=== PATIENT | male | born 1970 | race African-American/Black ===

== ENCOUNTER 2017-04-22 12:16 | Inpatient (IN) | payer OTHER ==
[2017-04-22 13:22] VITALS: BMI 39.8
--- NOTE | 2017-04-22 17:08 | HP ---
CIWA Score - CIWA Score Nausea/Vomitin-Mild Nausea/No Vomiting Muscle Tremors: 4-Moderate,w/Arms Extend Anxiety: 4-Mod. Anxious/Guarded Agitation: 4-Moderately Restless Paroxysmal Sweats: 1-Minimal Palms Moist Orientation: 2-Disoriented Date<2 days Tacttile Disturbances: 1-Very Mild Itch/Numbness Auditory Disturbances: 0-None Visual Disturbances: 0-None Headache: 1-Very Mild CIWA-Ar Total Score: 18 Admission ROS S - HPI Chief Complaint: withdrawal sx Allergies/Adverse Reactions: Allergies Allergy/AdvReac Type Severity Reaction Status Date / Time tomato Allergy Mild Swelling Verified 05/15/12 17:34 History of Present Illness: 46 years old male with long history of alcohol nicotine dependence has hypertension and depression is admitted to detox Exam Limitations: No Limitations - Ebola screening Have you traveled outside of the country in the last 21 days: No Have you had contact with anyone from an Ebola affected area: No Have you been sick,other than usual withdrawal symptoms: No Do you have a fever: No - Review of Systems Constitutional: Changes in sleep, Weight Stable EENT: reports: Blurred Vision (wears eye glasses) Respiratory: reports: No Symptoms reported Cardiac: reports: No Symptoms Reported GI: reports: Nausea, Poor Fluid Intake, Abdominal cramping : reports: No Symptoms Reported Musculoskeletal: reports: Back Pain (chronic) Integumentary: reports: No Symptoms Reported Neuro: reports: Tremors Endocrine: reports: No Symptoms Reported Hematology: reports: No Symptoms Reported Psychiatric: reports: Judgement Intact, Depressed Other Systems: Reviewed and Negative Patient History - Patient Medical History Hx Anemia: No Hx Asthma: No Hx Chronic Obstructive Pulmonary Disease (COPD): No Hx Cancer: No Hx Cardiac Disorders: No Hx Congestive Heart Failure: No Hx Hypertension: Yes (LISINOPRIL 10MG,HCTZ 25MG) Hx Hypercholesterolemia: No Hx Pacemaker: No Hx Seizures: No Hx Dementia: No Hx Diabetes: No Hx Gastrointestinal Disorders: No Hx Liver Disease: No Hx Genitourinary Disorders: No Hx Sexually Transmitted Disorders: No Hx Renal Disease (ESRD): No Hx Thyroid Disease: No Hx Human Immunodeficiency Virus (HIV): No Hx Hepatitis C: No Hx Depression: Yes Hx Suicide Attempt: No Hx Bipolar Disorder: No Hx Schizophrenia: No (JIMMIE ROBLERO) - Patient Surgical History Past Surgical History: No - PPD History Previous Implant?: Yes Documented Results: Negative w/proof Implanted On Prior [facility] Admission?: Yes Date: 05/17/12 PPD to be Administered?: Yes - Smoking Cessation Smoking history: Current every day smoker Have you smoked in the past 12 months: Yes Aproximately how many cigarettes per day: 3 Cigars Per Day: 0 Hx Chewing Tobacco Use: No Initiated information on smoking cessation: Yes 'Breaking Loose' booklet given: 04/22/17 - Substance & Tx. History Hx Alcohol Use: Yes Hx Substance Use: Yes Substance Use Type: Alcohol, Cocaine Hx Substance Use Treatment: Yes (01/2017 [facility]) - Substances Abused Alcohol Route: Oral Frequency: Daily Amount used: [id number] vodka Age of first use: 11 Date of Last Use: 04/22/17 Cocaine Route: Smoking Frequency: 3-6 times per week Amount used: 10$ Age of first use: 11 Date of Last Use: 04/21/17 Family Disease History - Family Disease History Family Disease History: Heart Disease: Mother (/hiv), Other: Father ( /no contact), Mother, Brother (no contact), Sister (no sister) Admission Physical Exam BHS - Vital Signs Vital Signs: Vital Signs - 24 hr 04/22/17 13:11 Temperature 96.6 F L Pulse Rate 99 H Respiratory 20 Rate Blood Pressure 149/104 - Physical General Appearance: Yes: Appropriately Dressed, Mild Distress, Alcohol on Breath , Obese, Tremorous, Irritable, Sweating, Anxious HEENTM: Yes: Hearing grossly Normal, Normal ENT Inspection, Normocephalic, Normal Voice Respiratory: Yes: Chest Non-Tender, Lungs Clear, Normal Breath Sounds, No Respiratory Distress, No Accessory Muscle Use Neck: Yes: Supple, Trachea in good position Breast: Yes: Breasts Symetrical Cardiology: Yes: Regular Rhythm, S1, S2, Tachycardia Abdominal: Yes: Non Tender, Soft, Increased Bowel Sounds Genitourinary: Yes: Within Normal Limits Back: Yes: Normal Inspection Musculoskeletal: Yes: full range of Motion, Gait Steady, Back pain Extremities: Yes: Normal Inspection, Normal Range of Motion, Non-Tender, Tremors Neurological: Yes: Alert, Motor Strength 5/5, Normal Response, Depressed Affect Integumentary: Yes: Warm Lymphatic: Yes: Within Normal Limits - Diagnostic (1) Alcohol dependence with uncomplicated withdrawal Current Visit: Yes Status: Acute (2) Hypertension Current Visit: Yes Status: Chronic Qualifiers: Hypertension type: essential hypertension Qualified Code(s): I10 - Essential (primary) hypertension (3) Nicotine dependence Current Visit: Yes Status: Acute Qualifiers: Nicotine product type: cigarettes Substance use status: in withdrawal Qualified Code(s): F17.213 - Nicotine dependence, cigarettes, with withdrawal (4) Depression (emotion) Current Visit: Yes Status: Suspected Qualifiers: Depression Type: dysthymia Qualified Code(s): F34.1 - Dysthymic disorder Cleared for Admission S - Detox or Rehab [facility] Level of Care: Medically Managed Detox Regimen/Protocol: Librium S Breath Alcohol Content Breath Alcohol Content: 0.035 Urine Drug Screen - Results Drug Screen Negative: No Urine Drug Screen Results: IDA-Cocaine
[2017-04-22] MEDS ORDERED: MAGNESIUM HYDROX 2400MG/30ML ORAL SUSPENSION 30 ML CUP PO PRN (17:12)
[2017-04-22] MEDS ORDERED: MAG HYDROX/AL HYDROX/SIMETH 30 ML UNIT-DOSE CUP PO PRN (17:12)
[2017-04-22] MEDS ORDERED: MENTHOL/PHENOL 1 EACH UD MM PRN (17:12)
[2017-04-22] MEDS ORDERED: guaiFENesin/D-METHORPHAN HB 10 ML UNIT-DOSE CUPS PO PRN (17:12)
[2017-04-22] MEDS ORDERED: MAGNESIUM CITRATE 300 ML BOTTLE PO PRN (17:12)
[2017-04-22] MEDS ORDERED: chlordiazePOXIDE HCL 25 MG CAPSULE PO PRN (17:12)
[2017-04-22] MEDS ORDERED: NICOTINE POLACRILEX 2 MG GUM BC PRN (17:12)
[2017-04-22] MEDS ORDERED: P-EPHED 60MG/TRIPROLIDI 2.5MG TABLET PO PRN (17:12)
[2017-04-22] MEDS ORDERED: LOPERAMIDE HCL 2 MG CAPSULE PO PRN (17:12)
[2017-04-22] MEDS ORDERED: ACETAMINOPHEN 325 MG TABLET (FP) PO PRN (17:12)
[2017-04-22] MEDS: LISINOPRIL 20 MG TABLET (FP) PO SCH (20:00)
[2017-04-22] MEDS: NIFEdipine E.R 60 MG TABLET (UD) PO SCH (20:00)
[2017-04-22] MEDS: chlordiazePOXIDE HCL 25 MG CAPSULE PO SCH (22:20)
[2017-04-22] MEDS: THIAMINE HCL 100 MG TABLET (FP) PO SCH (22:20)
[2017-04-22] MEDS: hydrOXYzine PAMOATE 50 MG CAPSULE (FP) PO PRN (22:22)
[2017-04-22 23:31] LABS: URINE APPEARANCE CLEAR; URINE BILIRUBIN NEGATIVE (NEGATIVE); URINE BLOOD NEGATIVE (NEGATIVE); URINE COLOR YELLOW; URINE GLUCOSE (UA) NEGATIVE (NEGATIVE); URINE KETONE NEGATIVE (NEGATIVE); URINE LEUK ESTERASE NEGATIVE (NEGATIVE); URINE NITRITE NEGATIVE (NEGATIVE)
[2017-04-22 23:35] LABS: URINE PROTEIN 2+ (NEGATIVE)
[2017-04-23] LABS: EPI CELLS RARE /HPF (FEW); URINE MUCUS RARE
[2017-04-23] MEDS: chlordiazePOXIDE HCL 25 MG CAPSULE PO SCH ×4 (05:38→22:04)
[2017-04-23] MEDS: NIFEdipine E.R 60 MG TABLET (UD) PO SCH (10:31)
[2017-04-23] MEDS: LISINOPRIL 20 MG TABLET (FP) PO SCH (10:31)
[2017-04-23] MEDS: PRENATAL VITAMINS W/ FOLIC ACID TABLET (FP) PO SCH (10:31)
[2017-04-23] MEDS: NICOTINE 14 MG/24 HOURS TOPICAL PATCH TD SCH (10:32)
[2017-04-23] MEDS: IBUPROFEN 400 MG TABLET (FP) PO PRN (10:33)
[2017-04-23 10:42] LABS: HEMATOCRIT 44.2 % (35.4-49); HEMOGLOBIN 14.4 GM/dL (11.7-16.9); MCH 30.6 pg (25.7-33.7); MCHC 32.5 g/dl (32.0-35.9); MEAN CELL VOLUME 94.1 fl (80-96); MEAN PLT VOLUME 10.9 fl (7.5-11.1); PLATELET COUNT 258 K/MM3 (134-434); RBC 4.69 M/mm3 (4.00-5.60); RDW 15.9 % (11.9-15.9)
[2017-04-23 10:52] LABS: CHLORIDE 107 mmol/L (98-107); POTASSIUM 3.9 mmol/L (3.5-5.1); SODIUM 142 mmol/L (136-145)
[2017-04-23 11:02] LABS: ALBUMIN 3.7 g/dl (3.4-5.0); ALK PHOS 106 U/L (45-117); ANION GAP 11 (8-16); BILIRUBIN,TOTAL 0.4 mg/dL (0.2-1.0); BLOOD UREA NITROGEN 11 mg/dL (7-18); CO2 24 mmol/L (21-32); CREATININE 1.2 mg/dL (0.7-1.3); GLUCOSE,RANDOM 120 mg/dL (74-106); SGOT/AST 21 U/L (15-37); SGPT/ALT 24 U/L (12-78); TOT PROT 7.5 g/dl (6.4-8.2)
[2017-04-23] MEDS ORDERED: PNEUMOCOCCAL 23 VACCINE 0.5 ML VIAL IM ONE (12:00)
[2017-04-23] MEDS ORDERED: FLU VACCINE QUAD 60 MCG/0.5 ML (MDV 17-18) IM ONE (12:00)
[2017-04-23] MEDS ORDERED: PNEUMOC 13-VAL CONJ-DIP CRM/PF 0.5 ML DISP.SYRIN IM ONE (12:00)
--- NOTE | 2017-04-23 12:09 | CONSULT ---
[facility] Psychiatric Consult - Data Date of interview: 04/23/17 Admission source: [facility] Identifying data: Pt. is a 46 year old male, single, without kids, on SSI and currently homeless.This is patient's first admission to [facility]. Pt. admitted to detox for alcohol and cocaine dependence. Substance Abuse History: Following information confirmed with Mr. Figueroa: - Smoking Cessation. Smoking history: Current every day smoker. Have you smoked in the past 12 months: Yes. Aproximately how many cigarettes per day: 3. Cigars Per Day: 0. Hx Chewing Tobacco Use: No. Initiated information on smoking cessation: Yes. 'Breaking Loose' booklet given: 04/22/17. - Substance & Tx. History. Hx Alcohol Use: Yes. Hx Substance Use: Yes. Substance Use Type : Alcohol, Cocaine. Hx Substance Use Treatment: Yes (01/2017 [facility]). - Substances Abused. Alcohol. Route: Oral. Frequency: Daily. Amount used: [id number]+50oz vodka. Age of first use: 11. Date of Last Use: 04/22/17. Cocaine. Route: Smoking. Frequency: 3-6 times per week. Amount used: 10$. Age of first use: 11. Date of Last Use: 04/21/17 Medical History: Hypertension. Psychiatric History: Pt. reports two psychiatric hospitalizations, most recently one month ago at [facility] for medication management. Patient's first encounter with a psychiatrist was in 1994 at [facility]. Stated he was diagnosed with Schizoaffective bipolar type. Pt. currently denies OPC. Reports getting his prescriptions when admitting himself to detox, rehab, and attending other mental health programs such as [facility] and [facility]. States he was taking depakote 500mg ER BID, latuda 40mg and trazodone 200mg. Reports no medications in one month and would like to resume medications while in detox. Pt. denies h/o suicide attempt. Physical/Sexual Abuse/Trauma History: Denies. Mental Status Exam - Mental Status Exam Alert and Oriented to: Time, Place, Person Cognitive Function: Good Patient Appearance: Well Groomed Mood: Hopeful, Happy Affect: Appropriate Patient Behavior: Cooperative Speech Pattern: Appropriate Voice Loudness: Normal Thought Process: Goal Oriented Thought Disorder: Not Present Hallucinations: Denies Suicidal Ideation: Denies Homicidal Ideation: Denies Insight/Judgement: Poor Sleep: Fair Appetite: Good Muscle strength/Tone: Normal Gait/Station: Normal Psychiatric Findings - Problem List ([place] 1, 2,3) (1) Cocaine dependence Current Visit: Yes Status: Acute (2) Alcohol dependence with uncomplicated withdrawal Current Visit: Yes Status: Acute (3) Nicotine dependence Current Visit: Yes Status: Chronic Qualifiers: Nicotine product type: cigarettes Substance use status: in withdrawal Qualified Code(s): F17.213 - Nicotine dependence, cigarettes, with withdrawal (4) Alcohol dependence Current Visit: Yes Status: Active (5) Schizoaffective disorder, bipolar type Current Visit: Yes Status: Chronic Comment: Self reports. - Initial Treatment Plan Initial Treatment Plan: Psychoeducation provided. Detoxification in progress. Depakote level ordered. Patient to restart Depakote 500mg ER BID + Latuda 40mg PO daily+ trazodone 100mg ordered. Benefits and side effects discussed. Verbal consent given. Will continue to monitor.
--- NOTE | 2017-04-23 12:36 | EKG ---
Test Reason : Blood Pressure : / mmHG Vent. Rate : 086 BPM Atrial Rate : 086 BPM P-R Int : 164 ms QRS Dur : 090 ms QT Int : 356 ms P-R-T Axes : 044 059 048 degrees QTc Int : 426 ms SINUS RHYTHM WITH OCCASIONAL PREMATURE VENTRICULAR COMPLEXES OTHERWISE NORMAL ECG NO PREVIOUS ECGS AVAILABLE Confirmed by CARY SCHWARZ, JACQUI ([id number]) on 04/23/2017 12:35:46 PM Referred By: Confirmed By:JACQUI TOWNSEND MD
--- NOTE | 2017-04-23 12:45 | PN ---
[facility] CIWA - CIWA Score Nausea/Vomitin-No Nausea/No Vomiting Muscle Tremors: 2 Anxiety: 4-Mod. Anxious/Guarded Agitation: 3 Paroxysmal Sweats: 3 Orientation: 0-Oriented Tacttile Disturbances: 2-Mild Itch/Numbness/Burn Auditory Disturbances: 0-None Visual Disturbances: 0-None Headache: 3-Moderate CIWA-Ar Total Score: 17 BHS Progress Note (SOAP) Subjective: Anxious, Diarrhea, H/A, Sweating. Objective: PT. A & O X 3, OBSERVED AMBULATING ON UNIT. NO ACUTE DISTRESS. 04/23/17 12:42 Vital Signs Temperature 98.8 F 04/23/17 09:18 Pulse Rate 94 H 04/23/17 09:18 Respiratory Rate 20 04/23/17 09:18 Blood Pressure 130/91 04/23/17 09:18 O2 Sat by Pulse Oximetry (%) Laboratory Tests 04/22/17 04/23/17 04/23/17 21:16 06:00 06:00 WBC 8.0 D RBC 4.69 Hgb 14.4 Hct 44.2 MCV 94.1 MCH 30.6 MCHC 32.5 RDW 15.9 Plt Count 258 MPV 10.9 Sodium 142 Potassium 3.9 Chloride 107 Carbon Dioxide 24 Anion Gap 11 BUN 11 D Creatinine 1.2 D Creat Clearance w eGFR > 60 Random Glucose 120 H D Calcium 9.0 Total Bilirubin 0.4 D AST 21 ALT 24 Alkaline Phosphatase 106 D Total Protein 7.5 Albumin 3.7 Urine Color Yellow Urine Appearance Clear Urine pH 6.0 Ur Specific [place] 1.016 Urine Protein 2+ H Urine Glucose (UA) Negative Urine Ketones Negative Urine Blood Negative Urine Nitrite Negative Urine Bilirubin Negative Urine Urobilinogen 2.0 Ur Leukocyte Esterase Negative Urine WBC (Auto) <1 Urine RBC (Auto) <1 Ur Epithelial Cells Rare Urine Mucus Rare LABS NOTED. HIV AB, HCV AB, AND RPR RESULTS PENDING. 04/23/17 12:44 Assessment: 04/23/17 12:42 WITHDRAWAL SYMPTOMS. Plan: CONTINUE DETOX. INCREASE DAILY PO FLUID INTAKE.
[2017-04-23] MEDS: traZODone HCL 100 MG TABLET (FP) PO SCH (22:03)
[2017-04-23] MEDS: hydrOXYzine PAMOATE 50 MG CAPSULE (FP) PO PRN (22:04)
[2017-04-23] MEDS: DIVALPROEX NA *ER* EXTEND REL 500 MG TABLET.SA (FP) PO SCH (22:04)
[2017-04-23] MEDS: THIAMINE HCL 100 MG TABLET (FP) PO SCH (22:04)
[2017-04-24] MEDS: chlordiazePOXIDE HCL 25 MG CAPSULE PO SCH ×3 (05:18→17:17)
[2017-04-24] MEDS: LURASIDONE HCL 40 MG TABLET PO SCH (10:17)
[2017-04-24] MEDS: NICOTINE 14 MG/24 HOURS TOPICAL PATCH TD SCH (10:17)
[2017-04-24] MEDS: LISINOPRIL 20 MG TABLET (FP) PO SCH (10:17)
[2017-04-24] MEDS: NIFEdipine E.R 60 MG TABLET (UD) PO SCH (10:17)
[2017-04-24] MEDS: PRENATAL VITAMINS W/ FOLIC ACID TABLET (FP) PO SCH (10:17)
[2017-04-24] MEDS: DIVALPROEX NA *ER* EXTEND REL 500 MG TABLET.SA (FP) PO SCH ×2 (10:17→22:16)
--- NOTE | 2017-04-24 12:59 | PN ---
[facility] CIWA - CIWA Score Nausea/Vomitin-No Nausea/No Vomiting Muscle Tremors: 2 Anxiety: 4-Mod. Anxious/Guarded Agitation: 2 Paroxysmal Sweats: 3 Orientation: 0-Oriented Tacttile Disturbances: 0-None Auditory Disturbances: 1-Very Mild Visual Disturbances: 3-Moderate Sensitivity Headache: 0-None Present CIWA-Ar Total Score: 15 S Progress Note (SOAP) Subjective: Fatigue, Sweating, Tremors. Objective: PT. A & O X 3, OBSERVED AMBULATING ON UNIT. NO ACUTE DISTRESS. 04/24/17 12:59 Vital Signs Temperature 96.5 F L 04/24/17 09:55 Pulse Rate 111 H 04/24/17 09:55 Respiratory Rate 18 04/24/17 09:55 Blood Pressure 123/80 04/24/17 09:55 O2 Sat by Pulse Oximetry (%) Laboratory Tests 04/22/17 04/22/17 04/23/17 06:00 21:16 06:00 WBC 8.0 D RBC 4.69 Hgb 14.4 Hct 44.2 MCV 94.1 MCH 30.6 MCHC 32.5 RDW 15.9 Plt Count 258 MPV 10.9 Sodium Potassium Chloride Carbon Dioxide Anion Gap BUN Creatinine Creat Clearance w eGFR Random Glucose Calcium Total Bilirubin AST ALT Alkaline Phosphatase Total Protein Albumin Urine Color Yellow Urine Appearance Clear Urine pH 6.0 Ur Specific [place] 1.016 Urine Protein 2+ H Urine Glucose (UA) Negative Urine Ketones Negative Urine Blood Negative Urine Nitrite Negative Urine Bilirubin Negative Urine Urobilinogen 2.0 Ur Leukocyte Esterase Negative Urine WBC (Auto) <1 Urine RBC (Auto) <1 Ur Epithelial Cells Rare Urine Mucus Rare Valproic Acid RPR Titer Hepatitis C Antibody <0.1 HIV 1&2 Antibody Screen HIV P24 Antigen 04/23/17 04/23/17 04/23/17 06:00 06:00 08:00 WBC RBC Hgb Hct MCV MCH MCHC RDW Plt Count MPV Sodium 142 Potassium 3.9 Chloride 107 Carbon Dioxide 24 Anion Gap 11 BUN 11 D Creatinine 1.2 D Creat Clearance w eGFR > 60 Random Glucose 120 H D Calcium 9.0 Total Bilirubin 0.4 D AST 21 ALT 24 Alkaline Phosphatase 106 D Total Protein 7.5 Albumin 3.7 Urine Color Urine Appearance Urine pH Ur Specific [place] Urine Protein Urine Glucose (UA) Urine Ketones Urine Blood Urine Nitrite Urine Bilirubin Urine Urobilinogen Ur Leukocyte Esterase Urine WBC (Auto) Urine RBC (Auto) Ur Epithelial Cells Urine Mucus Valproic Acid RPR Titer Nonreactive Hepatitis C Antibody HIV 1&2 Antibody Screen Negative HIV P24 Antigen Negative 04/24/17 07:00 WBC RBC Hgb Hct MCV MCH MCHC RDW Plt Count MPV Sodium Potassium Chloride Carbon Dioxide Anion Gap BUN Creatinine Creat Clearance w eGFR Random Glucose Calcium Total Bilirubin AST ALT Alkaline Phosphatase Total Protein Albumin Urine Color Urine Appearance Urine pH Ur Specific [place] Urine Protein Urine Glucose (UA) Urine Ketones Urine Blood Urine Nitrite Urine Bilirubin Urine Urobilinogen Ur Leukocyte Esterase Urine WBC (Auto) Urine RBC (Auto) Ur Epithelial Cells Urine Mucus Valproic Acid 12.355 L RPR Titer Hepatitis C Antibody HIV 1&2 Antibody Screen HIV P24 Antigen LABS NOTED. Assessment: 04/24/17 12:59 WITHDRAWAL SYMPTOMS. Plan: CONTINUE DETOX. INCREASE DAILY PO FLUID INTAKE.
[2017-04-24] MEDS: THIAMINE HCL 100 MG TABLET (FP) PO SCH (22:15)
[2017-04-24] MEDS: traZODone HCL 100 MG TABLET (FP) PO SCH (22:16)
[2017-04-24] MEDS: chlordiazePOXIDE 5 MG CAPSULE PO SCH (22:16)
[2017-04-24] MEDS: IBUPROFEN 400 MG TABLET (FP) PO PRN (22:17)
[2017-04-25] MEDS: chlordiazePOXIDE 5 MG CAPSULE PO SCH ×3 (05:19→17:23)
[2017-04-25] MEDS: PRENATAL VITAMINS W/ FOLIC ACID TABLET (FP) PO SCH (10:14)
[2017-04-25] MEDS: NIFEdipine E.R 60 MG TABLET (UD) PO SCH (10:14)
[2017-04-25] MEDS: LISINOPRIL 20 MG TABLET (FP) PO SCH (10:14)
[2017-04-25] MEDS: DIVALPROEX NA *ER* EXTEND REL 500 MG TABLET.SA (FP) PO SCH ×2 (10:15→22:20)
[2017-04-25] MEDS: LURASIDONE HCL 40 MG TABLET PO SCH (10:16)
[2017-04-25] MEDS: NICOTINE 14 MG/24 HOURS TOPICAL PATCH TD SCH (10:16)
--- NOTE | 2017-04-25 16:41 | PN ---
BHS Progress Note (SOAP) Subjective: Tremors, Sweating. Objective: PT. A & O X 3, OBSERVED AMBULATING ON UNIT. NO ACUTE DISTRESS. 04/25/17 16:40 Vital Signs Temperature 99.1 F 04/25/17 13:18 Pulse Rate 101 H 04/25/17 13:18 Respiratory Rate 18 04/25/17 13:18 Blood Pressure 142/93 04/25/17 13:18 O2 Sat by Pulse Oximetry (%) Laboratory Tests 04/22/17 04/22/17 04/23/17 06:00 21:16 06:00 WBC 8.0 D RBC 4.69 Hgb 14.4 Hct 44.2 MCV 94.1 MCH 30.6 MCHC 32.5 RDW 15.9 Plt Count 258 MPV 10.9 Sodium Potassium Chloride Carbon Dioxide Anion Gap BUN Creatinine Creat Clearance w eGFR Random Glucose Calcium Total Bilirubin AST ALT Alkaline Phosphatase Total Protein Albumin Urine Color Yellow Urine Appearance Clear Urine pH 6.0 Ur Specific [place] 1.016 Urine Protein 2+ H Urine Glucose (UA) Negative Urine Ketones Negative Urine Blood Negative Urine Nitrite Negative Urine Bilirubin Negative Urine Urobilinogen 2.0 Ur Leukocyte Esterase Negative Urine WBC (Auto) <1 Urine RBC (Auto) <1 Ur Epithelial Cells Rare Urine Mucus Rare Valproic Acid RPR Titer Hepatitis C Antibody <0.1 HIV 1&2 Antibody Screen HIV P24 Antigen 04/23/17 04/23/17 04/23/17 06:00 06:00 08:00 WBC RBC Hgb Hct MCV MCH MCHC RDW Plt Count MPV Sodium 142 Potassium 3.9 Chloride 107 Carbon Dioxide 24 Anion Gap 11 BUN 11 D Creatinine 1.2 D Creat Clearance w eGFR > 60 Random Glucose 120 H D Calcium 9.0 Total Bilirubin 0.4 D AST 21 ALT 24 Alkaline Phosphatase 106 D Total Protein 7.5 Albumin 3.7 Urine Color Urine Appearance Urine pH Ur Specific [place] Urine Protein Urine Glucose (UA) Urine Ketones Urine Blood Urine Nitrite Urine Bilirubin Urine Urobilinogen Ur Leukocyte Esterase Urine WBC (Auto) Urine RBC (Auto) Ur Epithelial Cells Urine Mucus Valproic Acid RPR Titer Nonreactive Hepatitis C Antibody HIV 1&2 Antibody Screen Negative HIV P24 Antigen Negative 04/24/17 07:00 WBC RBC Hgb Hct MCV MCH MCHC RDW Plt Count MPV Sodium Potassium Chloride Carbon Dioxide Anion Gap BUN Creatinine Creat Clearance w eGFR Random Glucose Calcium Total Bilirubin AST ALT Alkaline Phosphatase Total Protein Albumin Urine Color Urine Appearance Urine pH Ur Specific [place] Urine Protein Urine Glucose (UA) Urine Ketones Urine Blood Urine Nitrite Urine Bilirubin Urine Urobilinogen Ur Leukocyte Esterase Urine WBC (Auto) Urine RBC (Auto) Ur Epithelial Cells Urine Mucus Valproic Acid 12.355 L RPR Titer Hepatitis C Antibody HIV 1&2 Antibody Screen HIV P24 Antigen LABS NOTED. Assessment: 04/25/17 16:41 WITHDRAWAL SYMPTOMS. Plan: CONTINUE DETOX. INCREASE DAILY PO FLUID INTAKE.
[2017-04-25] MEDS: hydrOXYzine PAMOATE 50 MG CAPSULE (FP) PO PRN (17:23)
[2017-04-25] MEDS: IBUPROFEN 400 MG TABLET (FP) PO PRN (17:23)
[2017-04-25] MEDS: chlordiazePOXIDE HCL 10 MG CAPSULE PO SCH (22:20)
[2017-04-25] MEDS: traZODone HCL 100 MG TABLET (FP) PO SCH (22:20)
[2017-04-25] MEDS: THIAMINE HCL 100 MG TABLET (FP) PO SCH (22:20)
[2017-04-26] MEDS: chlordiazePOXIDE HCL 10 MG CAPSULE PO SCH ×3 (05:40→17:30)
[2017-04-26] MEDS: DIVALPROEX NA *ER* EXTEND REL 500 MG TABLET.SA (FP) PO SCH ×2 (10:27→22:27)
[2017-04-26] MEDS: NIFEdipine E.R 60 MG TABLET (UD) PO SCH (10:27)
[2017-04-26] MEDS: PRENATAL VITAMINS W/ FOLIC ACID TABLET (FP) PO SCH (10:28)
[2017-04-26] MEDS: NICOTINE 14 MG/24 HOURS TOPICAL PATCH TD SCH (10:28)
[2017-04-26] MEDS: LURASIDONE HCL 40 MG TABLET PO SCH (10:29)
[2017-04-26] MEDS: LISINOPRIL 20 MG TABLET (FP) PO SCH (10:29)
--- NOTE | 2017-04-26 16:27 | PN ---
BHS Progress Note (SOAP) Subjective: Anxious, sweating Objective: 04/26/17 16:25 Last Vital Signs Temp Pulse Resp BP Pulse Ox 97.4 F L 112 H 20 139/87 04/26/17 13:27 04/26/17 13:27 04/26/17 13:27 04/26/17 13:27 Laboratory Tests 04/22/17 04/22/17 04/23/17 06:00 21:16 06:00 WBC 8.0 D RBC 4.69 Hgb 14.4 Hct 44.2 MCV 94.1 MCH 30.6 MCHC 32.5 RDW 15.9 Plt Count 258 MPV 10.9 Sodium Potassium Chloride Carbon Dioxide Anion Gap BUN Creatinine Creat Clearance w eGFR Random Glucose Calcium Total Bilirubin AST ALT Alkaline Phosphatase Total Protein Albumin Urine Color Yellow Urine Appearance Clear Urine pH 6.0 Ur Specific [place] 1.016 Urine Protein 2+ H Urine Glucose (UA) Negative Urine Ketones Negative Urine Blood Negative Urine Nitrite Negative Urine Bilirubin Negative Urine Urobilinogen 2.0 Ur Leukocyte Esterase Negative Urine WBC (Auto) <1 Urine RBC (Auto) <1 Ur Epithelial Cells Rare Urine Mucus Rare Valproic Acid RPR Titer Hepatitis C Antibody <0.1 HIV 1&2 Antibody Screen HIV P24 Antigen 04/23/17 04/23/17 04/23/17 06:00 06:00 08:00 WBC RBC Hgb Hct MCV MCH MCHC RDW Plt Count MPV Sodium 142 Potassium 3.9 Chloride 107 Carbon Dioxide 24 Anion Gap 11 BUN 11 D Creatinine 1.2 D Creat Clearance w eGFR > 60 Random Glucose 120 H D Calcium 9.0 Total Bilirubin 0.4 D AST 21 ALT 24 Alkaline Phosphatase 106 D Total Protein 7.5 Albumin 3.7 Urine Color Urine Appearance Urine pH Ur Specific [place] Urine Protein Urine Glucose (UA) Urine Ketones Urine Blood Urine Nitrite Urine Bilirubin Urine Urobilinogen Ur Leukocyte Esterase Urine WBC (Auto) Urine RBC (Auto) Ur Epithelial Cells Urine Mucus Valproic Acid RPR Titer Nonreactive Hepatitis C Antibody HIV 1&2 Antibody Screen Negative HIV P24 Antigen Negative 04/24/17 07:00 WBC RBC Hgb Hct MCV MCH MCHC RDW Plt Count MPV Sodium Potassium Chloride Carbon Dioxide Anion Gap BUN Creatinine Creat Clearance w eGFR Random Glucose Calcium Total Bilirubin AST ALT Alkaline Phosphatase Total Protein Albumin Urine Color Urine Appearance Urine pH Ur Specific [place] Urine Protein Urine Glucose (UA) Urine Ketones Urine Blood Urine Nitrite Urine Bilirubin Urine Urobilinogen Ur Leukocyte Esterase Urine WBC (Auto) Urine RBC (Auto) Ur Epithelial Cells Urine Mucus Valproic Acid 12.355 L RPR Titer Hepatitis C Antibody HIV 1&2 Antibody Screen HIV P24 Antigen Labs noted: UA 2+ protein Assessment: 04/26/17 16:26 Withdrawal symptoms Noted with proteinuria Plan: Continue detox Proteinuria: encouraged to drink lots of water, repeat UA, follow up with PCP for monitoring
[2017-04-26] MEDS: IBUPROFEN 400 MG TABLET (FP) PO PRN (20:48)
[2017-04-26] MEDS: traZODone HCL 100 MG TABLET (FP) PO SCH (22:27)
[2017-04-26] MEDS: THIAMINE HCL 100 MG TABLET (FP) PO SCH (22:27)
[2017-04-26] MEDS: hydrOXYzine PAMOATE 50 MG CAPSULE (FP) PO PRN (22:28)
[2017-04-27 09:46] VITALS: BP 130/83; PULSE 102; TEMP 96.2
--- NOTE | 2017-04-27 11:50 | DS ---
[facility] Detox Discharge Summary Admission Date: 04/22/17 Discharge Date: 04/27/17 - History Present History: Alcohol Dependence, Cocaine Dependence Additional Comments: DETOX COMPLETED. ALERT O X 3. NAD. Pertinent Past History: HTN - Physical Exam Results Vital Signs: Vital Signs Temperature 96.2 F L 04/27/17 09:45 Pulse Rate 102 H 04/27/17 09:45 Respiratory Rate 18 04/27/17 09:45 Blood Pressure 130/83 04/27/17 09:45 O2 Sat by Pulse Oximetry (%) Pertinent Admission Physical Exam Findings: WITHDRAWAL SX Laboratory Last Values WBC 8.0 K/mm3 (4.0-10.0) D 04/23/17 06:00 RBC 4.69 M/mm3 (4.00-5.60) 04/23/17 06:00 Hgb 14.4 GM/dL (11.7-16.9) 04/23/17 06:00 Hct 44.2 % (35.4-49) 04/23/17 06:00 MCV 94.1 fl (80-96) 04/23/17 06:00 MCH 30.6 pg (25.7-33.7) 04/23/17 06:00 MCHC 32.5 g/dl (32.0-35.9) 04/23/17 06:00 RDW 15.9 % (11.9-15.9) 04/23/17 06:00 Plt Count 258 K/MM3 (134-434) 04/23/17 06:00 MPV 10.9 fl (7.5-11.1) 04/23/17 06:00 Sodium 142 mmol/L (136-145) 04/23/17 06:00 Potassium 3.9 mmol/L (3.5-5.1) 04/23/17 06:00 Chloride 107 mmol/L (98-107) 04/23/17 06:00 Carbon Dioxide 24 mmol/L (21-32) 04/23/17 06:00 Anion Gap 11 (8-16) 04/23/17 06:00 BUN 11 mg/dL (7-18) D 04/23/17 06:00 Creatinine 1.2 mg/dL (0.7-1.3) D 04/23/17 06:00 Creat Clearance w eGFR > 60 (>60) 04/23/17 06:00 Random Glucose 120 mg/dL (74-106) H D 04/23/17 06:00 Calcium 9.0 mg/dL (8.5-10.1) 04/23/17 06:00 Total Bilirubin 0.4 mg/dL (0.2-1.0) D 04/23/17 06:00 AST 21 U/L (15-37) 04/23/17 06:00 ALT 24 U/L (12-78) 04/23/17 06:00 Alkaline Phosphatase 106 U/L (45-117) D 04/23/17 06:00 Total Protein 7.5 g/dl (6.4-8.2) 04/23/17 06:00 Albumin 3.7 g/dl (3.4-5.0) 04/23/17 06:00 Urine Color Yellow 04/22/17 21:16 Urine Appearance Clear 04/22/17 21:16 Urine pH 6.0 (5.0-8.0) 04/22/17 21:16 Ur Specific [place] 1.016 (1.001-1.035) 04/22/17 21:16 Urine Protein 2+ (NEGATIVE) H 04/22/17 21:16 Urine Glucose (UA) Negative (NEGATIVE) 04/22/17 21:16 Urine Ketones Negative (NEGATIVE) 04/22/17 21:16 Urine Blood Negative (NEGATIVE) 04/22/17 21:16 Urine Nitrite Negative (NEGATIVE) 04/22/17 21:16 Urine Bilirubin Negative (NEGATIVE) 04/22/17 21:16 Urine Urobilinogen 2.0 mg/dL (0.2-1.0) 04/22/17 21:16 Ur Leukocyte Esterase Negative (NEGATIVE) 04/22/17 21:16 Urine WBC (Auto) <1 /hpf (3-5) 04/22/17 21:16 Urine RBC (Auto) <1 /hpf (0-3) 04/22/17 21:16 Ur Epithelial Cells Rare /HPF (FEW) 04/22/17 21:16 Urine Mucus Rare 04/22/17 21:16 Valproic Acid 12.355 ug/ml (50-100) L 04/24/17 07:00 RPR Titer Nonreactive (NONREACTIVE) 04/23/17 06:00 Hepatitis C Antibody <0.1 s/co ratio (0.0-0.9) 04/22/17 06:00 HIV 1&2 Antibody Screen Negative 04/23/17 08:00 HIV P24 Antigen Negative 04/23/17 08:00 - Treatment Hospital Course: Detox Protocol Followed, Detoxed Safely, Responded well, Discharged Condition Good, Rehab Referral Accepted Patient has Accepted a Rehab Referral to: [facility] - Medication Discharge Medications: Ambulatory Orders Trazodone HCl [Desyrel -] 200 mg PO HS 04/22/17 Divalproex *ER* [Depakote *ER* -] 500 mg PO BID #60 tablet.sa 04/24/17 Lisinopril 20 mg PO DAILY #30 tablet 04/24/17 Lurasidone HCl [Latuda] 40 mg PO DAILY #30 tablet 04/24/17 Nifedipine ER [Procardia Xl -] 60 mg PO DAILY #30 tab.er.24 04/24/17 Trazodone HCl 100 mg PO HS #30 tablet 04/24/17 - Diagnosis (1) Alcohol dependence with uncomplicated withdrawal Status: Acute (2) Hypertension Status: Chronic Qualifiers: Hypertension type: essential hypertension Qualified Code(s): I10 - Essential (primary) hypertension (3) Nicotine dependence Status: Chronic Qualifiers: Nicotine product type: cigarettes Substance use status: in withdrawal Qualified Code(s): F17.213 - Nicotine dependence, cigarettes, with withdrawal (4) Cocaine dependence Status: Acute Qualifiers: Substance use status: uncomplicated Qualified Code(s): F14.20 - Cocaine dependence, uncomplicated - AMA Did Patient Leave Against Medical Advice: No
== END 2017-04-27 09:19 | disposition home or self-care (01) | DRG 775 ==
LOC: YASAS 12:16 → Y3N 18:50
PROVIDERS: ADMIT Internal Medicine; ATTEND Internal Medicine
PROC: HZ2ZZZZ Detoxification Services for Substance Abuse Treatment (ICD-10-PCS; principal; 2017-04-22)
DX: F10.230 Alcohol dependence with withdrawal, uncomplicated (principal); F17.213 Nicotine dependence, cigarettes, with withdrawal; F34.1 Dysthymic disorder; F25.0 Schizoaffective disorder, bipolar type; R80.9 Proteinuria, unspecified; R00.0 Tachycardia, unspecified; I10 Essential (primary) hypertension; E66.9 Obesity, unspecified; Z68.39 Body mass index [BMI] 39.0-39.9, adult; Z91.018 Allergy to other foods
CPT/HCPCS: 36415; 80053; 80164; 81003; 81015; 85027; 86593; 86803; 87389; 90688; 90732; 93005; 93010; G0009

== ENCOUNTER 2017-10-05 17:15 | Inpatient (IN) | payer OTHER ==
[2017-10-05 19:07] VITALS: BMI 42.2
--- NOTE | 2017-10-05 21:11 | HP ---
CIWA Score - CIWA Score Nausea/Vomitin Muscle Tremors: 2 Anxiety: 3 Agitation: 3 Paroxysmal Sweats: 3 Orientation: 0-Oriented Tacttile Disturbances: 2-Mild Itch/Numbness/Burn (b/l numbness fingertips and itch) Auditory Disturbances: 0-None Visual Disturbances: 0-None Headache: 0-None Present CIWA-Ar Total Score: 16 Admission ROS BHS - HPI Chief Complaint: alcohol withdrawal symptoms Allergies/Adverse Reactions: Allergies Allergy/AdvReac Type Severity Reaction Status Date / Time Fish Containing Products Allergy Intermediate Swelling Verified 10/05/17 21:20 tomato Allergy Mild Swelling Verified 10/05/17 20:29 No Known Drug Allergies Allergy Verified 10/05/17 20:29 History of Present Illness: 47 yo male with hx of cocaine and alcohol dependence is here seeking detox. Last detox [facility] 04/22/17 -04/27/17. PMHX: Atrial Flutter, DM II, HTN, hyperlipidemia, Insomnia, Bipolar. On on Truvada for Prep. Patient currently treated for abscess on the left armpit on Augmentin, last dose due tomorrow. Longest period of sobriety 1 year and 8 months. Denies suicidal / homicidal ideation. Denies hx suicide attempts. Denies hx of seizures, hx of alcohol related black outs with last episode one month ago. Exam Limitations: No Limitations - Ebola screening Have you traveled outside of the country in the last 21 days: No (N) Have you had contact with anyone from an Ebola affected area: No Have you been sick,other than usual withdrawal symptoms: No Do you have a fever: No - Review of Systems Constitutional: Chills, Diaphoresis, Changes in sleep EENT: reports: Dental Problems (missing teeth) Respiratory: reports: No Symptoms reported Cardiac: reports: See HPI GI: reports: Diarrhea, Nausea, Poor Fluid Intake : reports: No Symptoms Reported Musculoskeletal: reports: Back Pain, Joint Pain Integumentary: reports: No Symptoms Reported Neuro: reports: See HPI, Numbness (finger tips b/l) Endocrine: reports: Increased Thirst Hematology: reports: No Symptoms Reported Psychiatric: reports: Orientated x3, Anxious Other Systems: Reviewed and Negative Patient History - Patient Medical History Hx Anemia: No Hx Asthma: No Hx Chronic Obstructive Pulmonary Disease (COPD): No Hx Cancer: No Hx Cardiac Disorders: No Hx Congestive Heart Failure: No Hx Hypertension: Yes Hx Hypercholesterolemia: No Hx Pacemaker: No Hx Seizures: No Hx Dementia: No Hx Diabetes: Yes Hx Gastrointestinal Disorders: No Hx Liver Disease: No Hx Genitourinary Disorders: No Hx Sexually Transmitted Disorders: No Hx Renal Disease (ESRD): No Hx Thyroid Disease: No Hx Human Immunodeficiency Virus (HIV): No Hx Hepatitis C: No Hx Depression: Yes Hx Suicide Attempt: No Hx Bipolar Disorder: No Hx Schizophrenia: Yes - Patient Surgical History Past Surgical History: No Hx Neurologic Surgery: No Hx Cataract Extraction: No Hx Cardiac Surgery: No Hx Lung Surgery: No Hx Breast Surgery: No Hx Breast Biopsy: No Hx Abdominal Surgery: No Hx Appendectomy: No Hx Cholecystectomy: No Hx Genitourinary Surgery: No Hx Section: No Hx Orthopedic Surgery: No Anesthesia Reaction: No - PPD History Previous Implant?: Yes Documented Results: Negative w/proof Date: 04/24/17 PPD to be Administered?: No - Smoking Cessation Smoking history: Current every day smoker Have you smoked in the past 12 months: Yes Aproximately how many cigarettes per day: 3 Cigars Per Day: 0 Hx Chewing Tobacco Use: No Initiated information on smoking cessation: Yes 'Breaking Loose' booklet given: 10/05/17 - Substance & Tx. History Hx Alcohol Use: Yes Hx Substance Use: Yes Substance Use Type: Alcohol, Cocaine Hx Substance Use Treatment: Yes - Substances Abused Alcohol Route: Oral Frequency: Daily Amount used: liquor- 4 pints, beer- 4 six pack Age of first use: 11 Date of Last Use: 10/05/17 Crack Route: Smoking Frequency: Daily Amount used: 1 bag Age of first use: 11 Date of Last Use: 10/05/17 Family Disease History - Family Disease History Family Disease History: Heart Disease: Mother (/hiv), Other: Father ( /no contact), Mother, Brother (no contact), Sister (no sister) Admission Physical Exam BHS - Vital Signs Vital Signs: Vital Signs - 24 hr 10/05/17 18:57 Temperature 98.9 F Pulse Rate 76 Respiratory 18 Rate Blood Pressure 143/86 - Physical General Appearance: Yes: Disheveled, Mild Distress, Obese, Sweating, Anxious HEENTM: Yes: EOMI, Hearing grossly Normal, Normal ENT Inspection, Normocephalic , Normal Voice, [place], Pharynx Normal, Tm's normal, Other (poor dentition) Respiratory: Yes: Chest Non-Tender, Lungs Clear, Normal Breath Sounds, No Respiratory Distress, No Accessory Muscle Use Neck: Yes: No masses,lesions,Nodules, Trachea in good position Breast: Yes: Breast Exam Deferred Cardiology: Yes: Regular Rhythm, Regular Rate Abdominal: Yes: Normal Bowel Sounds, Non Tender, Soft, Protuberent Genitourinary: Yes: Within Normal Limits Back: Yes: Normal Inspection Musculoskeletal: Yes: full range of Motion, Gait Steady, Pelvis Stable Extremities: Yes: Normal Capillary Refill, Normal Inspection, Normal Range of Motion, Non-Tender Neurological: Yes: cryptologic support specialist II-XII NML intact, Fully Oriented, Alert, Motor Strength 5/5, Depressed Affect Integumentary: Yes: Normal Color, Warm, Diaphoresis Lymphatic: Yes: Within Normal Limits - Diagnostic (1) Obese Current Visit: Yes Status: Chronic Qualifiers: Obesity classification: adult class 3 (BMI >= 40) Body mass index: BMI 40.0 -44.9 (2) Diabetes mellitus type 2 in obese Current Visit: Yes Status: Chronic (3) Alcohol dependence with uncomplicated withdrawal Current Visit: Yes Status: Acute (4) Cocaine dependence Current Visit: Yes Status: Acute Qualifiers: Substance use status: uncomplicated Qualified Code(s): F14.20 - Cocaine dependence, uncomplicated (5) Depression (emotion) Current Visit: Yes Status: Acute Qualifiers: Depression Type: dysthymia Qualified Code(s): F34.1 - Dysthymic disorder (6) Hypertension Current Visit: Yes Status: Chronic Qualifiers: Hypertension type: essential hypertension Qualified Code(s): I10 - Essential (primary) hypertension (7) Nicotine dependence Current Visit: Yes Status: Acute Qualifiers: Nicotine product type: cigarettes Substance use status: in withdrawal Qualified Code(s): F17.213 - Nicotine dependence, cigarettes, with withdrawal Cleared for Admission S - Detox or Rehab [facility] Level of Care: Medically Managed Detox Regimen/Protocol: Librium [facility] Breath Alcohol Content Breath Alcohol Content: 0 Urine Drug Screen - Results Drug Screen Negative: No Urine Drug Screen Results: IDA-Cocaine
[2017-10-05] MEDS ORDERED: chlordiazePOXIDE HCL 25 MG CAPSULE PO ONE (21:44)
[2017-10-05] MEDS ORDERED: guaiFENesin/D-METHORPHAN HB 10 ML UNIT-DOSE CUPS PO PRN (21:44)
[2017-10-05] MEDS ORDERED: LOPERAMIDE HCL 2 MG CAPSULE PO PRN (21:44)
[2017-10-05] MEDS ORDERED: chlordiazePOXIDE HCL 25 MG CAPSULE PO PRN (21:44)
[2017-10-05] MEDS ORDERED: P-EPHED 60MG/TRIPROLIDI 2.5MG TABLET PO PRN (21:44)
[2017-10-05] MEDS ORDERED: MAGNESIUM HYDROX 2400MG/30ML ORAL SUSPENSION 30 ML CUP PO PRN (21:44)
[2017-10-05] MEDS ORDERED: MAGNESIUM CITRATE 300 ML BOTTLE PO PRN (21:44)
[2017-10-05] MEDS ORDERED: MENTHOL/PHENOL 1 EACH UD MM PRN (21:44)
[2017-10-05] MEDS ORDERED: MAG HYDROX/AL HYDROX/SIMETH 30 ML UNIT-DOSE CUP PO PRN (21:44)
[2017-10-05] MEDS ORDERED: ACETAMINOPHEN 325 MG TABLET (FP) PO PRN (21:44)
[2017-10-05] MEDS ORDERED: MELATONIN 5 MG TABLETS PO PRN (22:00)
[2017-10-05] MEDS: THIAMINE HCL 100 MG TABLET (FP) PO SCH (23:10)
[2017-10-05] MEDS: chlordiazePOXIDE HCL 25 MG CAPSULE PO SCH (23:10)
[2017-10-06] MEDS: chlordiazePOXIDE HCL 25 MG CAPSULE PO SCH ×4 (05:19→22:12)
[2017-10-06] MEDS: AMOX TR/POT CLAV 875MG/125MG TABLETS (FP) PO SCH ×2 (07:51→18:10)
[2017-10-06] MEDS ORDERED: EMTRICITABINE 200MG/TENOFOVIR 300MG PO SCH (10:00)
[2017-10-06] MEDS: LISINOPRIL 20 MG TABLET (FP) PO SCH (10:06)
[2017-10-06] MEDS: ASPIRIN 81 MG CHEWABLE TABLETS PO SCH (10:06)
[2017-10-06] MEDS: PRENATAL VITAMINS W/ FOLIC ACID TABLET (FP) PO SCH (10:06)
--- NOTE | 2017-10-06 10:08 | PN ---
S CIWA - CIWA Score Nausea/Vomitin-Mild Nausea/No Vomiting Muscle Tremors: 4-Moderate,w/Arms Extend Anxiety: 4-Mod. Anxious/Guarded Agitation: 4-Moderately Restless Paroxysmal Sweats: 1-Minimal Palms Moist Orientation: 0-Oriented Tacttile Disturbances: 0-None Auditory Disturbances: 0-None Visual Disturbances: 0-None Headache: 0-None Present CIWA-Ar Total Score: 14 BHS Progress Note (SOAP) Subjective: sweat tremor trouble sleep at night anxiety restlessness Objective: 10/06/17 10:07 Vital Signs Temperature 97.7 F 10/06/17 07:30 Pulse Rate 71 10/06/17 07:30 Respiratory Rate 18 10/06/17 07:30 Blood Pressure 121/79 10/06/17 07:30 O2 Sat by Pulse Oximetry (%) Laboratory Last Values POC Glucometer 126 UNITS (80-120) 10/06/17 06:04 lab not available at this time Assessment: 10/06/17 10:08 withdrawal sx Plan: continue detox
[2017-10-06 10:26] LABS: HEMATOCRIT 39.9 % (35.4-49); HEMOGLOBIN 13.3 GM/dL (11.7-16.9); MCH 30.7 pg (25.7-33.7); MCHC 33.4 g/dl (32.0-35.9); MEAN CELL VOLUME 92.1 fl (80-96); MEAN PLT VOLUME 9.5 fl (7.5-11.1); PLATELET COUNT 206 K/MM3 (134-434); RBC 4.33 M/mm3 (4.00-5.60); RDW 15.3 % (11.9-15.9); WHITE BLOOD COUNT 5.1 K/mm3 (4.0-10.0)
[2017-10-06 10:33] LABS: ALBUMIN 3.6 g/dl (3.4-5.0); ANION GAP 8 (8-16); BLOOD UREA NITROGEN 8 mg/dL (7-18); CALCIUM 8.6 mg/dL (8.5-10.1); CHLORIDE 110 mmol/L (98-107); CO2 26 mmol/L (21-32); GLUCOSE,RANDOM 96 mg/dL (74-106); POTASSIUM 3.9 mmol/L (3.5-5.1); SGOT/AST 15 U/L (15-37); SGPT/ALT 22 U/L (12-78); SODIUM 144 mmol/L (136-145)
[2017-10-06 10:35] LABS: ALK PHOS 74 U/L (45-117); BILIRUBIN,TOTAL 0.4 mg/dL (0.2-1.0); TOT PROT 6.7 g/dl (6.4-8.2)
--- NOTE | 2017-10-06 13:11 | EKG ---
Test Reason : Blood Pressure : / mmHG Vent. Rate : 073 BPM Atrial Rate : 073 BPM P-R Int : 150 ms QRS Dur : 094 ms QT Int : 400 ms P-R-T Axes : 072 073 065 degrees QTc Int : 440 ms NORMAL SINUS RHYTHM POSSIBLE LEFT ATRIAL ENLARGEMENT BORDERLINE ECG Confirmed by MD SUDHIR, OSMIN ([id number]) on 10/06/2017 1:10:40 PM Referred By: Confirmed By:OSMIN PEGUERO MD
--- NOTE | 2017-10-06 16:24 | CONSULT ---
[facility] Psychiatric Consult - Data Date of interview: 10/06/17 Admission source: [facility] Identifying data: Readmission to [facility] for this 47 y/o AA male seeking detox treatment on for alcohol and cocaine (crack) dependence.Patient is single without children,homeless,unemployed and supported on food stamps. Substance Abuse History: Confirmed by patient in this session.Smoking history: Current every day smoker. Have you smoked in the past 12 months: Yes. Aproximately how many cigarettes per day: 3. Cigars Per Day: 0. Hx Chewing Tobacco Use: No. Initiated information on smoking cessation: Yes. 'Breaking Loose' booklet given: 10/05/17. - Substance & Tx. History. Hx Alcohol Use: Yes. Hx Substance Use: Yes. Substance Use Type: Alcohol, Cocaine. Hx Substance Use Treatment: Yes. - Substances Abused. Alcohol. Route: Oral. Frequency: Daily. Amount used: liquor- 4 pints, beer- 4 six pack. Age of first use: 11. Date of Last Use: 10/05/17. Crack. Route: Smoking. Frequency: Daily. Amount used: 1 bag. Age of first use: 11. Date of Last Use : 10/05/17 Medical History: Diabetes mellitus,atrial flutter,hypertension,dyslipidemia and obesity. Psychiatric History: Reported history of two psychiatric hospitalizations ( [facility]).Patient endorses the diagnosis of Schizoaffective Disorder.Used to get his OPD care at the [facility] mental health clinic (maintained on latuda 40 mg/day + trazodone 150 mg/hs).Mr Figueroa admits to non-adherence to his medications for past two months.NO show at his OPD clinic for some time (self-report).Patient states that he got medications refills for a general practitioner.Denies history of suicide attempts. Physical/Sexual Abuse/Trauma History: Patient denies. Additional Comment: Urine Drug Screen Results: IDA-Cocaine.Noted. Mental Status Exam - Mental Status Exam Alert and Oriented to: Time, Place, Person Cognitive Function: Good Patient Appearance: Well Groomed (obese) Mood: Hopeful, Euthymic Affect: Appropriate, Normal Range Patient Behavior: Fatigued, Cooperative Speech Pattern: Clear, Appropriate Voice Loudness: Normal Thought Process: Goal Oriented Thought Disorder: Not Present Hallucinations: Denies Suicidal Ideation: Denies Homicidal Ideation: Denies Insight/Judgement: Poor Sleep: Poorly, Difficulty falling asleep Appetite: Good Muscle strength/Tone: Normal Gait/Station: Normal Psychiatric Findings - Problem List ([place] 1, 2,3) (1) Alcohol dependence with uncomplicated withdrawal Current Visit: Yes Status: Acute (2) Cocaine dependence Current Visit: Yes Status: Acute Qualifiers: Substance use status: uncomplicated Qualified Code(s): F14.20 - Cocaine dependence, uncomplicated (3) Nicotine dependence Current Visit: Yes Status: Acute Qualifiers: Nicotine product type: cigarettes Substance use status: in withdrawal Qualified Code(s): F17.213 - Nicotine dependence, cigarettes, with withdrawal (4) Schizoaffective disorder, bipolar type Current Visit: Yes Status: Chronic Comment: Self reports. (5) Insomnia Current Visit: Yes Status: Acute (6) Substance induced mood disorder Current Visit: Yes Status: Acute (7) Non compliance w medication regimen Current Visit: Yes Status: Acute - Initial Treatment Plan Initial Treatment Plan: Psychoeducation.Records revisited.Sleep hygiene discussed.Detoxification in progress.Patient has expressed the wish to resume latuda but not trazodone.Prefers mirtazapine for the management for his insomnia.Will resume latuda 20 mg po daily + mirtazapine 15 mg po hs.Side effects/benefits of both drugs are explained to the patient.Mr Figueroa consents ( verbally) to this plan of care.Observation.
[2017-10-06] MEDS: IBUPROFEN 400 MG TABLET (FP) PO PRN (18:10)
[2017-10-06] MEDS: ATORVASTATIN CA 10 MG TABLET (FP) PO SCH (22:11)
[2017-10-06] MEDS: MIRTAZAPINE 15 MG TABLET (FP) PO SCH (22:11)
[2017-10-06] MEDS: THIAMINE HCL 100 MG TABLET (FP) PO SCH (22:12)
[2017-10-07] MEDS: chlordiazePOXIDE HCL 25 MG CAPSULE PO SCH ×3 (06:30→17:39)
[2017-10-07] MEDS ORDERED: EMTRICITABINE 200MG/TENOFOVIR 300MG PO SCH (10:00)
[2017-10-07] MEDS: PRENATAL VITAMINS W/ FOLIC ACID TABLET (FP) PO SCH (10:07)
[2017-10-07] MEDS: LISINOPRIL 20 MG TABLET (FP) PO SCH (10:08)
[2017-10-07] MEDS: ASPIRIN 81 MG CHEWABLE TABLETS PO SCH (10:08)
[2017-10-07] MEDS: LURASIDONE HCL 20 MG TABLET PO SCH (10:08)
--- NOTE | 2017-10-07 13:42 | PN ---
[facility] CIWA - CIWA Score Nausea/Vomitin-No Nausea/No Vomiting Muscle Tremors: 3 Anxiety: 3 Agitation: 3 Paroxysmal Sweats: 1-Minimal Palms Moist Orientation: 0-Oriented Tacttile Disturbances: 1-Very Mild Itch/Numbness Auditory Disturbances: 0-None Visual Disturbances: 0-None Headache: 0-None Present CIWA-Ar Total Score: 11 S Progress Note (SOAP) Subjective: sweat tremor anxiety hesitation on discussing hiv and alcohol addiction Objective: 10/07/17 13:49 Vital Signs Temperature 97.7 F 10/07/17 09:51 Pulse Rate 65 10/07/17 09:51 Respiratory Rate 18 10/07/17 09:51 Blood Pressure 143/100 10/07/17 09:51 O2 Sat by Pulse Oximetry (%) Laboratory Last Values WBC 5.1 K/mm3 (4.0-10.0) 10/06/17 06:52 RBC 4.33 M/mm3 (4.00-5.60) 10/06/17 06:52 Hgb 13.3 GM/dL (11.7-16.9) 10/06/17 06:52 Hct 39.9 % (35.4-49) 10/06/17 06:52 MCV 92.1 fl (80-96) 10/06/17 06:52 MCH 30.7 pg (25.7-33.7) 10/06/17 06:52 MCHC 33.4 g/dl (32.0-35.9) 10/06/17 06:52 RDW 15.3 % (11.9-15.9) 10/06/17 06:52 Plt Count 206 K/MM3 (134-434) D 10/06/17 06:52 MPV 9.5 fl (7.5-11.1) D 10/06/17 06:52 Sodium 144 mmol/L (136-145) 10/06/17 06:52 Potassium 3.9 mmol/L (3.5-5.1) 10/06/17 06:52 Chloride 110 mmol/L (98-107) H 10/06/17 06:52 Carbon Dioxide 26 mmol/L (21-32) 10/06/17 06:52 Anion Gap 8 (8-16) 10/06/17 06:52 BUN 8 mg/dL (7-18) 10/06/17 06:52 Creatinine 1.0 mg/dL (0.7-1.3) 10/06/17 06:52 Creat Clearance w eGFR > 60 (>60) 10/06/17 06:52 POC Glucometer 106 UNITS (80-120) 10/07/17 06:32 Random Glucose 96 mg/dL (74-106) 10/06/17 06:52 Calcium 8.6 mg/dL (8.5-10.1) 10/06/17 06:52 Total Bilirubin 0.4 mg/dL (0.2-1.0) 10/06/17 06:52 AST 15 U/L (15-37) D 10/06/17 06:52 ALT 22 U/L (12-78) 10/06/17 06:52 Alkaline Phosphatase 74 U/L (45-117) 10/06/17 06:52 Total Protein 6.7 g/dl (6.4-8.2) 10/06/17 06:52 Albumin 3.6 g/dl (3.4-5.0) 10/06/17 06:52 RPR Titer Nonreactive (NONREACTIVE) 10/06/17 06:52 HIV 1&2 Antibody Screen Negative 10/06/17 06:52 HIV P24 Antigen Negative 10/06/17 06:52 discuss hiv test result with the patient discontinue truvada patient brought in medications belong to another person as Toby Florence with different day of besides 69 lab noted 10/07/17 13:50 Assessment: 10/07/17 13:53 withdrawal sx discontinue hiv medication 10/07/17 13:53 discontinue metformin Plan: continue detox negative hiv hgb a1c pending health teaching on the risks of taking prescription medications other than patient's own
[2017-10-07] MEDS: IBUPROFEN 400 MG TABLET (FP) PO PRN (17:38)
[2017-10-07] MEDS: THIAMINE HCL 100 MG TABLET (FP) PO SCH (22:24)
[2017-10-07] MEDS: chlordiazePOXIDE 5 MG CAPSULE PO SCH (22:24)
[2017-10-07] MEDS: MIRTAZAPINE 15 MG TABLET (FP) PO SCH (22:24)
[2017-10-07] MEDS: ATORVASTATIN CA 10 MG TABLET (FP) PO SCH (22:25)
[2017-10-08] MEDS: chlordiazePOXIDE 5 MG CAPSULE PO SCH ×3 (05:46→17:35)
[2017-10-08] MEDS: LURASIDONE HCL 20 MG TABLET PO SCH (10:05)
[2017-10-08] MEDS: LISINOPRIL 20 MG TABLET (FP) PO SCH (10:05)
[2017-10-08] MEDS: PRENATAL VITAMINS W/ FOLIC ACID TABLET (FP) PO SCH (10:05)
[2017-10-08] MEDS: ASPIRIN 81 MG CHEWABLE TABLETS PO SCH (10:05)
--- NOTE | 2017-10-08 12:02 | PN ---
S Progress Note (SOAP) Subjective: feeling better no tremor no gi distress sleep better at night Objective: 10/08/17 12:08 Vital Signs Temperature 98.1 F 10/08/17 09:30 Pulse Rate 72 10/08/17 09:30 Respiratory Rate 20 10/08/17 09:30 Blood Pressure 142/102 10/08/17 09:30 O2 Sat by Pulse Oximetry (%) Laboratory Last Values WBC 5.1 K/mm3 (4.0-10.0) 10/06/17 06:52 RBC 4.33 M/mm3 (4.00-5.60) 10/06/17 06:52 Hgb 13.3 GM/dL (11.7-16.9) 10/06/17 06:52 Hct 39.9 % (35.4-49) 10/06/17 06:52 MCV 92.1 fl (80-96) 10/06/17 06:52 MCH 30.7 pg (25.7-33.7) 10/06/17 06:52 MCHC 33.4 g/dl (32.0-35.9) 10/06/17 06:52 RDW 15.3 % (11.9-15.9) 10/06/17 06:52 Plt Count 206 K/MM3 (134-434) D 10/06/17 06:52 MPV 9.5 fl (7.5-11.1) D 10/06/17 06:52 Sodium 144 mmol/L (136-145) 10/06/17 06:52 Potassium 3.9 mmol/L (3.5-5.1) 10/06/17 06:52 Chloride 110 mmol/L (98-107) H 10/06/17 06:52 Carbon Dioxide 26 mmol/L (21-32) 10/06/17 06:52 Anion Gap 8 (8-16) 10/06/17 06:52 BUN 8 mg/dL (7-18) 10/06/17 06:52 Creatinine 1.0 mg/dL (0.7-1.3) 10/06/17 06:52 Creat Clearance w eGFR > 60 (>60) 10/06/17 06:52 POC Glucometer 113 UNITS (80-120) 10/08/17 05:48 Random Glucose 96 mg/dL (74-106) 10/06/17 06:52 Hemoglobin A1c % 6.8 % (4.8-6.0) H 10/08/17 07:40 Calcium 8.6 mg/dL (8.5-10.1) 10/06/17 06:52 Total Bilirubin 0.4 mg/dL (0.2-1.0) 10/06/17 06:52 AST 15 U/L (15-37) D 10/06/17 06:52 ALT 22 U/L (12-78) 10/06/17 06:52 Alkaline Phosphatase 74 U/L (45-117) 10/06/17 06:52 Total Protein 6.7 g/dl (6.4-8.2) 10/06/17 06:52 Albumin 3.6 g/dl (3.4-5.0) 10/06/17 06:52 RPR Titer Nonreactive (NONREACTIVE) 10/06/17 06:52 HIV 1&2 Antibody Screen Negative 10/06/17 06:52 HIV P24 Antigen Negative 10/06/17 06:52 lab noted Assessment: 10/08/17 12:09 mild withdrawal sx Plan: medically supervised detox
[2017-10-08 16:54] LABS: URINE APPEARANCE CLEAR; URINE BILIRUBIN NEGATIVE (<2.0 mg/dL); URINE COLOR STRAW; URINE GLUCOSE (UA) NEGATIVE (NEGATIVE); URINE KETONE NEGATIVE (NEGATIVE); URINE LEUK ESTERASE NEGATIVE (NEGATIVE); URINE NITRITE NEGATIVE (NEGATIVE); URINE PROTEIN NEGATIVE (NEGATIVE); URINE UROBILINOGEN NEGATIVE mg/dL (0.2-1.0)
[2017-10-08] MEDS: IBUPROFEN 400 MG TABLET (FP) PO PRN (17:34)
[2017-10-08] MEDS: chlordiazePOXIDE HCL 10 MG CAPSULE PO SCH (22:52)
[2017-10-08] MEDS: ATORVASTATIN CA 10 MG TABLET (FP) PO SCH (22:52)
[2017-10-08] MEDS: MIRTAZAPINE 15 MG TABLET (FP) PO SCH (22:52)
[2017-10-08] MEDS: THIAMINE HCL 100 MG TABLET (FP) PO SCH (22:52)
[2017-10-09] MEDS: chlordiazePOXIDE HCL 10 MG CAPSULE PO SCH (05:46)
[2017-10-09 06:16] VITALS: TEMP 97.5
[2017-10-09 06:28] VITALS: BP 149/98; PULSE 63
--- NOTE | 2017-10-09 06:54 | DS ---
[facility] Detox Discharge Summary Admission Date: 10/05/17 Discharge Date: 10/09/17 - History Present History: Alcohol Dependence, Cocaine Dependence - Physical Exam Results Vital Signs: Vital Signs Temperature 97.5 F L 10/09/17 06:15 Pulse Rate 63 10/09/17 06:27 Respiratory Rate 18 10/09/17 06:15 Blood Pressure 149/98 10/09/17 06:27 O2 Sat by Pulse Oximetry (%) Pertinent Admission Physical Exam Findings: Laboratory Last Values WBC 5.1 K/mm3 (4.0-10.0) 10/06/17 06:52 RBC 4.33 M/mm3 (4.00-5.60) 10/06/17 06:52 Hgb 13.3 GM/dL (11.7-16.9) 10/06/17 06:52 Hct 39.9 % (35.4-49) 10/06/17 06:52 MCV 92.1 fl (80-96) 10/06/17 06:52 MCH 30.7 pg (25.7-33.7) 10/06/17 06:52 MCHC 33.4 g/dl (32.0-35.9) 10/06/17 06:52 RDW 15.3 % (11.9-15.9) 10/06/17 06:52 Plt Count 206 K/MM3 (134-434) D 10/06/17 06:52 MPV 9.5 fl (7.5-11.1) D 10/06/17 06:52 Sodium 144 mmol/L (136-145) 10/06/17 06:52 Potassium 3.9 mmol/L (3.5-5.1) 10/06/17 06:52 Chloride 110 mmol/L (98-107) H 10/06/17 06:52 Carbon Dioxide 26 mmol/L (21-32) 10/06/17 06:52 Anion Gap 8 (8-16) 10/06/17 06:52 BUN 8 mg/dL (7-18) 10/06/17 06:52 Creatinine 1.0 mg/dL (0.7-1.3) 10/06/17 06:52 Creat Clearance w eGFR > 60 (>60) 10/06/17 06:52 POC Glucometer 102 UNITS (80-120) 10/09/17 05:44 Random Glucose 96 mg/dL (74-106) 10/06/17 06:52 Hemoglobin A1c % 6.8 % (4.8-6.0) H 10/08/17 07:40 Calcium 8.6 mg/dL (8.5-10.1) 10/06/17 06:52 Total Bilirubin 0.4 mg/dL (0.2-1.0) 10/06/17 06:52 AST 15 U/L (15-37) D 10/06/17 06:52 ALT 22 U/L (12-78) 10/06/17 06:52 Alkaline Phosphatase 74 U/L (45-117) 10/06/17 06:52 Total Protein 6.7 g/dl (6.4-8.2) 10/06/17 06:52 Albumin 3.6 g/dl (3.4-5.0) 10/06/17 06:52 Urine Color Straw 10/08/17 09:30 Urine Appearance Clear 10/08/17 09:30 Urine pH 6.0 (5.0-8.0) 10/08/17 09:30 Ur Specific [place] 1.011 (1.001-1.035) 10/08/17 09:30 Urine Protein Negative (NEGATIVE) 10/08/17 09:30 Urine Glucose (UA) Negative (NEGATIVE) 10/08/17 09:30 Urine Ketones Negative (NEGATIVE) 10/08/17 09:30 Urine Blood Negative (NEGATIVE) 10/08/17 09:30 Urine Nitrite Negative (NEGATIVE) 10/08/17 09:30 Urine Bilirubin Negative (<2.0 mg/dL) 10/08/17 09:30 Urine Urobilinogen Negative mg/dL (0.2-1.0) 10/08/17 09:30 Ur Leukocyte Esterase Negative (NEGATIVE) 10/08/17 09:30 RPR Titer Nonreactive (NONREACTIVE) 10/06/17 06:52 HIV 1&2 Antibody Screen Negative 10/06/17 06:52 HIV P24 Antigen Negative 10/06/17 06:52 Labs noted - Treatment Hospital Course: Detox Protocol Followed, Detoxed Safely, Responded well, Discharged Condition Good, Rehab Referral Accepted Patient has Accepted a Rehab Referral to: [facility] - Medication Discharge Medications: Ambulatory Orders traZODone HCL [Desyrel -] 150 mg PO HS 04/22/17 Lurasidone HCl [Latuda] 40 mg PO DAILY #30 tablet 04/24/17 Aspirin [ASA -] 81 mg PO DAILY 10/05/17 Amoxicillin/Potassium Clav [Amox-Clav 875-125 mg Tablet] 1 tab PO BID #7 tablet 10/08/17 Lisinopril 20 mg PO DAILY #30 tablet 10/08/17 Metoprolol Succinate 200 mg PO DAILY #30 tab.er.24h 10/08/17 Simvastatin 5 mg PO DAILY #30 tablet 10/08/17 - Diagnosis (1) Alcohol dependence with uncomplicated withdrawal Current Visit: Yes Status: Chronic (2) Cocaine dependence Current Visit: Yes Status: Chronic Qualifiers: Substance use status: uncomplicated Qualified Code(s): F14.20 - Cocaine dependence, uncomplicated (3) Nicotine dependence Current Visit: Yes Status: Chronic Qualifiers: Nicotine product type: cigarettes Substance use status: in withdrawal Qualified Code(s): F17.213 - Nicotine dependence, cigarettes, with withdrawal (4) Diabetes mellitus type 2 in obese Current Visit: Yes Status: Chronic (5) Hypertension Current Visit: Yes Status: Chronic Qualifiers: Hypertension type: essential hypertension Qualified Code(s): I10 - Essential (primary) hypertension (6) Obese Current Visit: Yes Status: Chronic Qualifiers: Obesity classification: adult class 3 (BMI >= 40) Body mass index: BMI 40.0 -44.9 - AMA Did Patient Leave Against Medical Advice: No
--- NOTE | 2017-10-09 08:14 | PN ---
S Progress Note (SOAP) Subjective: alert,no complaint Objective: 10/09/17 08:12 Vital Signs Temperature 97.5 F L 10/09/17 06:15 Pulse Rate 63 10/09/17 06:27 Respiratory Rate 18 10/09/17 06:15 Blood Pressure 149/98 10/09/17 06:27 O2 Sat by Pulse Oximetry (%) Assessment: 10/09/17 08:13 detox completed,no wthdrawal symptom Plan: discharge today,follow up with after care program as arrangement
== END 2017-10-09 06:44 | disposition home or self-care (01) | DRG 774 ==
LOC: YASAS 17:15 → Y6N 20:25
PROVIDERS: ADMIT Surgery; ATTEND Surgery
PROC: HZ2ZZZZ Detoxification Services for Substance Abuse Treatment (ICD-10-PCS; principal; 2017-10-05)
DX: F10.230 Alcohol dependence with withdrawal, uncomplicated (principal); F14.20 Cocaine dependence, uncomplicated; F17.213 Nicotine dependence, cigarettes, with withdrawal; F25.0 Schizoaffective disorder, bipolar type; F19.24 Other psychoactive substance dependence with psychoactive substance-induced mood disorder; I10 Essential (primary) hypertension; E11.9 Type 2 diabetes mellitus without complications; E66.9 Obesity, unspecified; Z68.41 Body mass index [BMI] 40.0-44.9, adult; Z79.82 Long term (current) use of aspirin; Z91.14 Patient's other noncompliance with medication regimen; F34.1 Dysthymic disorder
CPT/HCPCS: 36415; 80053; 81003; 82962; 83036; 85027; 86593; 87389; 93005; 93010